=== PATIENT | female | born 1970 | race African-American/Black ===

== ENCOUNTER 2024-12-22 08:53 | Emergency (ER) | payer OTHER, MEDICAID ==
[~2024-12-22] VITALS: Ht 154.9 cm; Wt 72.6 kg
[2024-12-22 09:03] VITALS: BP 129/91; TEMP 97.9; O2SAT 99
[2024-12-22] MEDS ORDERED: IBUP-1957 PO (09:15)
[2024-12-22] MEDS ORDERED: TERB250T53 PO (09:15)
== END 2024-12-22 09:28 | disposition home or self-care (01) ==
LOC: ER 09:07
DX: B35.3 Tinea pedis (principal); M79.671 Pain in right foot; M79.672 Pain in left foot; I10 Essential (primary) hypertension; E11.9 Type 2 diabetes mellitus without complications; F17.200 Nicotine dependence, unspecified, uncomplicated; Z79.1 Long term (current) use of non-steroidal anti-inflammatories (NSAID)